=== PATIENT | male | born 1985 | race Caucasian/White ===

== ENCOUNTER 2017-02-14 21:07 | Inpatient (IN) | payer MEDICAID, MEDICARE ==
--- NOTE | 2017-02-14 21:41 | ED PDOC ---
HPI: Psych/Substance Abuse Time Seen by Provider: 02/14/17 21:35 Chief Complaint (Nursing): Psychiatric Evaluation Chief Complaint (Provider): crisis eval History Per: Patient, EMS Additional Complaint(s): 31 year old male presents to ED from assisted for crisis eval. Patient states he is having delusional thoughts and he is hearing voices. He states he feels suicidal and his plan would be to "cut my veins." Patient offers no acute medical complaints upon arrival. Past Medical History Reviewed: Historical Data, Nursing Documentation, Vital Signs Vital Signs: Last Vital Signs Temp 98.2 F 02/14/17 21:14 Pulse 107 H 02/14/17 21:14 Resp 16 02/14/17 21:14 BP 149/89 02/14/17 21:14 Pulse Ox 96 02/14/17 21:14 - Medical History PMH: Asthma, Bipolar Disorder, Depression - Family History Family History: States: No Known Family Hx - Living Arrangements Living Arrangements: Other (lives in assisted) - Social History Current smoker - smoking cessation education provided: No Alcohol: None Drugs: Denies - Allergies Allergies/Adverse Reactions: Allergies Allergy/AdvReac Type Severity Reaction Status Date / Time No Known Allergies Allergy Verified 08/19/14 09:39 Review of Systems ROS Statement: Except As Marked, All Systems Reviewed And Found Negative Psych: Positive for: Psychosis (hearing voices), Suicidal ideation Physical Exam - Reviewed Nursing Documentation Reviewed: Yes Vital Signs Reviewed: Yes - Physical Exam Appears: Positive for: Well, Non-toxic, No Acute Distress Skin: Negative for: Rash Eye Exam: Positive for: Normal appearance, EOMI, PERRL Cardiovascular/Chest: Positive for: Regular Rate, Rhythm Respiratory: Positive for: Normal Breath Sounds Extremity: Positive for: Normal ROM. Negative for: Pedal Edema Neurologic/Psych: Positive for: Alert, Oriented - Laboratory Results Result Diagrams: 02/14/17 22:11 02/14/17 22:11 - ECG Interpretation Of ECG: NSR 83 bpm, no acute finding, reviewed by PA and ED attending O2 Sat by Pulse Oximetry: 96 Pulse Ox Interpretation: Normal - Other Rad Bedside chest X-Ray: Interpreted by Me, Viewed By Me X-Ray Interpretation: no acute finding Medical Decision Making Medical Decision Makin31 year old here for crisis eval Plan: 1:1 observation Crisis eval CBC CMP BAL UDS UA CXR Admit to ED observation ED OBSERVATION Date of observation admission: 02/14/17 Time of observation admission: 23:25 - Observation admission statement Patient is being placed in observation because:: Hearing voices, suicidal thoughts - Goals of Observation Goals of observation are:: Monitor patient while undergoing medical and psychiatric work-up - Progress Note Progress Note: 02/14/17 23:36 As per crisis counselor and psychiatrist carbon furnace operator, Dr. Wolf, patient does not meet criteria for admission to [facility] psych unit and he will require [facility] screen. 02/14/17 23:47 Patient is medically stable for [facility] screen Disposition - Clinical Impression Clinical Impression: Schizoaffective disorder, bipolar type - Patient ED Disposition Is Patient to be Admitted: Transfer of Care - Disposition Disposition: Transfer of Care Disposition Time: 23:48 Condition: FAIR Forms: [employer] (Kazakh) Patient Signed Over To: Yanci Mckenna Handoff Comments: Signed out to CARYN Mckenna pending [facility] screen and final disposition Results - Lab Results Lab Results: 02/14/17 02/14/17 02/14/17 22:11 22:11 22:11 WBC RBC Hgb Hct MCV MCH MCHC RDW Plt Count MPV Neut % (Auto) Lymph % (Auto) Coke % (Auto) Eos % (Auto) Baso % (Auto) Neut # Lymph # Coke # Eos # Baso # Sodium Potassium Chloride Carbon Dioxide Anion Gap BUN Creatinine Est GFR ( Amer) Est GFR (Non-Af Amer) Random Glucose Calcium Total Bilirubin AST ALT Alkaline Phosphatase Total Protein Albumin Globulin Albumin/Globulin Ratio Urine Color Yellow Urine Clarity Slighty-cloudy Urine pH 5.0 Ur Specific [place] 1.024 Urine Protein Negative Urine Glucose (UA) Neg Urine Ketones Trace Urine Blood Negative Urine Nitrate Negative Urine Bilirubin Negative Urine Urobilinogen 2.0 Ur Leukocyte Esterase Neg Urine RBC (Auto) 6 H Urine Microscopic WBC < 1 Urine Bacteria Rare Urine Opiates Screen Negative Urine Methadone Screen Negative Ur Barbiturates Screen Negative Valproic Acid 17.0 L Ur Phencyclidine Scrn Negative Ur Amphetamines Screen Negative U Benzodiazepines Scrn Negative U Oth Cocaine Metabols Negative U Cannabinoids Screen Negative Alcohol, Quantitative 02/14/17 02/14/17 22:11 22:11 WBC 9.4 RBC 4.39 L Hgb 13.5 Hct 38.8 MCV 88.5 MCH 30.7 MCHC 34.7 RDW 14.2 Plt Count 234 MPV 9.4 Neut % (Auto) 46.6 L Lymph % (Auto) 41.2 H Coke % (Auto) 7.9 Eos % (Auto) 3.5 Baso % (Auto) 0.8 Neut # 4.4 Lymph # 3.9 Coke # 0.7 Eos # 0.3 Baso # 0.1 Sodium 140 Potassium 3.9 Chloride 105 Carbon Dioxide 27 Anion Gap 12 BUN 12 Creatinine 0.9 Est GFR ( Amer) > 60 Est GFR (Non-Af Amer) > 60 Random Glucose 122 H Calcium 9.3 Total Bilirubin 0.2 AST 24 ALT 45 Alkaline Phosphatase 55 Total Protein 7.2 Albumin 4.4 Globulin 2.8 Albumin/Globulin Ratio 1.5 Urine Color Urine Clarity Urine pH Ur Specific [place] Urine Protein Urine Glucose (UA) Urine Ketones Urine Blood Urine Nitrate Urine Bilirubin Urine Urobilinogen Ur Leukocyte Esterase Urine RBC (Auto) Urine Microscopic WBC Urine Bacteria Urine Opiates Screen Urine Methadone Screen Ur Barbiturates Screen Valproic Acid Ur Phencyclidine Scrn Ur Amphetamines Screen U Benzodiazepines Scrn U Oth Cocaine Metabols U Cannabinoids Screen Alcohol, Quantitative < 10
[2017-02-14 22:23] LABS: URINE BACTERIA RARE (<OCC); URINE BILIRUBIN NEGATIVE (NEGATIVE); URINE BLOOD NEGATIVE (NEGATIVE); URINE CLARITY SLIGHTY-CLOUDY (Clear); URINE COLOR YELLOW (YELLOW); URINE GLUCOSE (UA) NEG (Normal); URINE LEUKOCYTE ESTERASE NEG Leu/uL (Negative); URINE NITRATE NEGATIVE (NEGATIVE); URINE PROTEIN NEGATIVE (NEGATIVE)
[2017-02-14 22:25] LABS: BASO # 0.1 K/uL (0.0-0.2); BASO % 0.8 % (0.0-2.0); EOS # 0.3 K/uL (0.0-0.7); EOS % 3.5 % (0.0-4.0); HEMOGLOBIN 13.5 g/dL (12.0-18.0); LYMPH # 3.9 K/uL (1.0-4.3); LYMPH % 41.2 % (20.0-40.0); MEAN CELL VOLUME 88.5 fl (80.0-94.0); MEAN CORPUSCULAR HEMOGLOBIN 30.7 pg (27.0-31.0); MEAN CORPUSCULAR HGB CONC 34.7 g/dL (33.0-37.0); MEAN PLATELET VOLUME 9.4 fl (7.2-11.7); MONO # 0.7 K/uL (0.0-0.8); MONO % 7.9 % (0.0-10.0); NEUT # 4.4 K/uL (1.8-7.0); NEUT % 46.6 % (50.0-75.0); NRBC % 0.2 % (0.0-0.0); RBC 4.39 Mil/uL (4.40-5.90); RED CELL DISTRIBUTION WIDTH 14.2 % (11.5-14.5); WHITE BLOOD COUNT 9.4 K/uL (4.8-10.8)
[2017-02-14 22:35] LABS: ALB/GLOB RATIO 1.5 (1.0-2.1); ALBUMIN 4.4 g/dL (3.5-5.0); ALT/SGPT 45 U/L (21-72); AST/SGOT 24 U/L (17-59); BLOOD UREA NITROGEN 12 mg/dl (9-20); CALCIUM 9.3 mg/dL (8.4-10.2); GFR AFRICAN-AMERICAN > 60; GFR NON-AFRICAN AMERICAN > 60
[2017-02-14 22:55] LABS: BARBITURATES, UR NEGATIVE (NEGATIVE); BENZODIAZEPINES, UR NEGATIVE (NEGATIVE); OPIATES, UR NEGATIVE (NEGATIVE); PHENCYCLIDINE, UR NEGATIVE (NEGATIVE)
--- NOTE | 2017-02-15 05:12 | ED PDOC ---
- Laboratory Results Result Diagrams: 02/14/17 22:11 02/14/17 22:11 - ECG O2 Sat by Pulse Oximetry: 96 - Progress ED Course And Treament: Case endorsed to procedure writer from Tatyana GLASS pending [facility] eval 1:30 Patient resting comfortably 3:00 Patient sleeping, no distress 4:30 Patient sleeping, no distress 5:10 Patient now voluntary, will be admitted to [facility] as per Dr. Wolf. Disposition - Clinical Impression Clinical Impression: Schizoaffective disorder, bipolar type - POA Present On Arrival: None - Disposition Disposition: Admitted as In-Patient Disposition Time: 05:12 Condition: STABLE
[2017-02-15] MEDS ORDERED: DiphenhydrAMINE 50 mg/ml Inj IM PRN (05:33)
[2017-02-15 05:35] VITALS: O2SAT 98
[2017-02-15] MEDS ORDERED: Magnesium Hydroxide Susp 30 ml UD PO PRN (05:41)
[2017-02-15] MEDS ORDERED: Alum-Mag Hydrox-Simethicone Susp (30 mL) PO PRN (05:41)
--- NOTE | 2017-02-15 08:00 | CARD ---
APPROVED REPORT EKG Measurement Heart [id number] IN [id number] <Conclusion> Normal sinus rhythm Nonspecific T wave abnormality Abnormal ECG
--- NOTE | 2017-02-15 10:30 | RAD ---
HISTORY: Medical clearance. COMPARISON: 08/19/2014. FINDINGS: LUNGS: No active pulmonary disease. PLEURA: No significant pleural effusion identified, no pneumothorax apparent. CARDIOVASCULAR: Normal. OSSEOUS STRUCTURES: No significant abnormalities. VISUALIZED UPPER ABDOMEN: Normal. OTHER FINDINGS: None. IMPRESSION: No active disease. No significant interval change compared to the prior examination(s).
[2017-02-15] MEDS ORDERED: Ergocalciferol 50,000 Intl Units Cap PO SCH (11:15)
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
--- NOTE | 2017-02-15 14:41 | PCM.BM ---
<ElkhartConstanza villatoro - Last Filed: 02/15/17 14:39> Treatment Plan Problems - Problems identified on initial assessmt Auditory Hallucinations Date Initiated: 02/15/17 Time Initiated: 14:41 Assessment reference: NA Status: Active Priority: 1 Treatment assets and liabiliti Patient Assests: ADL independent, negotiates basic needs Patient Liabilities: poor support system, substance abuse - Milieu Protocol Maintain good personal hygiene: daily Encourage regular showers, every shift Remind patient to perform daily oral care, every shift Assist patient to perform ADL's Conduct patient checks and document Observation sheet: Q15 minutes Maintain personal safety: every shift Educate patient to report safety concerns to staff, every shift Monitor environment for contraband/sharps Medication safety: Monitor for expected outcome, potential side effects: every shift, Assess barriers to learning: every shift, Assess readiness for medication education: every shift Milieu Narrative: admit to 3[facility] for safety and observation gather collateral information provide supportive therapy adjust medications- restart home meds disposition planning- return to [facility] tomorrow if remains stable hospitalist consult Discharge/Continuing Care - Treatment Team Participation Patient/Family/SO Statement: admit to 3[facility] for safety and observation gather collateral information provide supportive therapy adjust medications- restart home meds disposition planning- return to [facility] tomorrow if remains stable hospitalist consult <Favio Ramirez - Last Filed: 02/16/17 12:33> Treatment Plan Problems - Problems identified on initial assessmt Alcohol Use Date Initiated: 02/16/17 (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.) Time Initiated: 12:29 Assessment reference: SW Status: Active Family Contact - Outside Agency Agency 1 Care involvment: Following patient during stay, Information-sharing Agency contact name: BONILLA Rosa/Mary Anne Agency contact number: [phone] Discharge/Continuing Care - Education Needs Education Needs: Family Medication, Family Anger Management skills, Family Community resources, Family Personal Hygiene/Grooming - Discharge Discharge Criteria: Free of agitation, Reduction of target symptoms Discharge to:: Intermediate - Treatment Team Participation Discussed with Family/SO: No Was Patient/Family/SO present at Treatment Team Meeting: Yes
[2017-02-15] MEDS: Divalproex 500 mg DR(BID formulation) PO SCH (17:13)
[2017-02-16] MEDS ORDERED: Levothyroxine 50 MCG TAB PO SCH (09:00)
[2017-02-16] MEDS: Divalproex 500 mg DR(BID formulation) PO SCH (09:25)
[2017-02-16 09:45] LABS: HDL CHOLESTEROL 42 MG/DL (30-70)
[2017-02-16 09:56] LABS: LDL CHOLESTEROL 130 mg/dL (0-129)
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
[2017-02-16 16:04] VITALS: BP 163/95; PULSE 89; RESP 20; TEMP 97.5
== END 2017-02-16 17:32 | disposition home or self-care (01) | DRG 430 ==
LOC: H.ER 21:07 → H.EROBSV 23:23 → H.ERHOLD 02-15 05:10 → OBSVTOIN 02-15 05:10 → H.PSYCH 02-15 05:51
PROVIDERS: ADMIT Psychiatry & Neurology Psychiatry; ATTEND Psychiatry & Neurology Psychiatry
PROC: GZ3ZZZZ Medication Management (ICD-10-PCS; principal; 2017-02-15)
PROC: GZHZZZZ Group Psychotherapy (ICD-10-PCS; 2017-02-15)
PROC: GZ56ZZZ Individual Psychotherapy, Supportive (ICD-10-PCS; 2017-02-15)
DX: F25.0 Schizoaffective disorder, bipolar type (principal); F22 Delusional disorders; R45.851 Suicidal ideations; F10.10 Alcohol abuse, uncomplicated; J45.909 Unspecified asthma, uncomplicated

== ENCOUNTER 2017-04-28 09:22 | Emergency (ER) | payer MEDICAID, MEDICARE ==
[2017-04-28 09:33] VITALS: BMI 38.7
[2017-04-28 10:14] LABS: BASO # 0.1 K/uL (0.0-0.2); BASO % 0.7 % (0.0-2.0); EOS # 0.2 K/uL (0.0-0.7); EOS % 2.5 % (0.0-4.0); HEMATOCRIT 44.8 % (35.0-51.0); LYMPH # 3.4 K/uL (1.0-4.3); LYMPH % 40.9 % (20.0-40.0); MEAN CELL VOLUME 89.6 fl (80.0-94.0); MEAN CORPUSCULAR HEMOGLOBIN 29.7 pg (27.0-31.0); MEAN CORPUSCULAR HGB CONC 33.1 g/dL (33.0-37.0); MEAN PLATELET VOLUME 8.8 fl (7.2-11.7); MONO # 0.9 K/uL (0.0-0.8); MONO % 10.3 % (0.0-10.0); NEUT # 3.8 K/uL (1.8-7.0); NEUT % 45.6 % (50.0-75.0); NRBC % 0.3 % (0.0-0.0); RED CELL DISTRIBUTION WIDTH 13.9 % (11.5-14.5); WHITE BLOOD COUNT 8.4 K/uL (4.8-10.8)
--- NOTE | 2017-04-28 10:20 | ED PDOC ---
HPI: Psych/Substance Abuse Time Seen by Provider: 04/28/17 09:38 Chief Complaint (Nursing): Psychiatric Evaluation Chief Complaint (Provider): psych eval ED Caveat: Intoxicated History/Exam Limitations: clinical condition Onset/Duration Of Symptoms: Unknown Current Symptoms Are (Timing): Still Present Modifying Factor(s): Alcohol, Marijuana Associated Symptoms: Agitation (mild) Involuntary Hold By: Emergency Physician Additional Complaint(s): 31yo male per EMS resident [facility] who eloped 3 days ago, "drank alcohol and smoked marijuana", returned to [facility] this morning and sent to ED for evaluation. Patient is uncooperative with questioning. Denies trauma, pain, or injury. Past Medical History Reviewed: Historical Data, Nursing Documentation, Vital Signs Vital Signs: Last Vital Signs Temp 97.8 F 04/28/17 09:33 Pulse 92 H 04/28/17 09:33 Resp 17 04/28/17 09:33 BP 149/94 H 04/28/17 09:33 Pulse Ox 98 04/28/17 09:33 - Medical History PMH: Asthma, Bipolar Disorder, Depression, Diabetes, HTN, Hyperthyroidism, Schizophrenia Denies: Hepatitis, HIV, Seizures, Sexually Transmitted Disease - Family History Family History: States: Unknown Family Hx - Living Arrangements Living Arrangements: Other ([facility]) - Social History Alcohol: Occasional Drugs: Cannabis - Immunization History Hx Tetanus Toxoid Vaccination: No Hx Influenza Vaccination: No Hx Pneumococcal Vaccination: No - Home Medications Home Medications: Ambulatory Orders Medication Instructions Recorded Divalproex [Depakote ER(ONCE 500 mg PO BID #60 02/16/17 DAILY)] Ergocalciferol (Vitamin D2) 1 cap PO QWK #4 02/16/17 [Vitamin D2] Levothyroxine [Synthroid] 50 mcg PO DAILY #30 02/16/17 [place] Carbonate [[place] 300 mg PO BID #60 cap 02/16/17 Carbonate 300MG] metFORMIN [glucOPHAGE] 500 mg PO BID #60 02/16/17 Benzonatate [Tessalon Perles] 100 mg PO TID #20 sgl 04/19/17 Fluticasone Propionate [Flonase] 1 actuation NS BID #1 bottle 04/19/17 - Allergies Allergies/Adverse Reactions: Allergies Allergy/AdvReac Type Severity Reaction Status Date / Time No Known Allergies Allergy Verified 10/19/17 09:39 Review of Systems Review Of Systems: ROS cannot be obtained secondary to pt's inabilty to answer questions. Physical Exam - Reviewed Nursing Documentation Reviewed: Yes Vital Signs Reviewed: Yes - Physical Exam Appears: Positive for: Non-toxic, No Acute Distress Head Exam: Positive for: ATRAUMATIC, NORMAL INSPECTION, NORMOCEPHALIC Skin: Positive for: Normal Color, Warm. Negative for: Diaphoresis Eye Exam: Positive for: EOMI, Normal appearance, PERRL ENT: Positive for: Normal ENT Inspection Neck: Positive for: Normal, Painless ROM Cardiovascular/Chest: Positive for: Regular Rate, Rhythm Respiratory: Positive for: CNT, Normal Breath Sounds Gastrointestinal/Abdominal: Positive for: Bowel Sounds, Soft. Negative for: Tenderness Back: Positive for: Normal Inspection Extremity: Positive for: Normal ROM Neurologic/Psych: Positive for: Alert, Mood/Affect (poor insight, speech limited /uncooperative). Negative for: Motor/Sensory Deficits - Laboratory Results Result Diagrams: 04/28/17 10:07 04/28/17 10:07 - ECG O2 Sat by Pulse Oximetry: 98 Medical Decision Making Medical Decision Making: placed 1:1 obs Labs, Utox ordered labs reviewed, clinically unremarkable crisis saw patient, discussed w [facility] who states will take him back. transportation to be arranged. Disposition - Clinical Impression Clinical Impression: Schizoaffective disorder - Patient ED Disposition Is Patient to be Admitted: No Counseled Patient/Family Regarding: Studies Performed, Diagnosis, Need For Followup - Disposition Referrals: [facility] [Outside] Disposition: Routine/Home Disposition Time: 15:15 Condition: STABLE Instructions: Schizoaffective Disorder (ED) Forms: [id number] (Spanish)
[2017-04-28 10:24] LABS: ALB/GLOB RATIO 1.4 (1.0-2.1); ALCOHOL SERUM < 10 mg/dl (0-10); ALKALINE PHOSPHATASE 69 U/L (38-126); ALT/SGPT 61 U/L (21-72); AST/SGOT 35 U/L (17-59); BILIRUBIN,TOTAL 0.2 mg/dl (0.2-1.3); BLOOD UREA NITROGEN 11 mg/dl (9-20); CALCIUM 9.1 mg/dL (8.4-10.2); CARBON DIOXIDE 24 mmol/L (22-30); CHLORIDE 106 mmol/L (98-107); GFR AFRICAN-AMERICAN > 60; GLUCOSE,RANDOM 97 mg/dL (75-110); POTASSIUM 3.9 MMOL/L (3.6-5.0); SODIUM 142 mmol/l (132-148); TOTAL PROTEIN 7.6 G/DL (6.3-8.2)
[2017-04-28 11:06] LABS: RBC URINE < 1 /hpf (0-3); URINE BACTERIA RARE (<OCC); URINE BILIRUBIN NEGATIVE (NEGATIVE); URINE BLOOD NEGATIVE (NEGATIVE); URINE COLOR YELLOW (YELLOW); URINE GLUCOSE (UA) NEG (Normal); URINE KETONE TRACE mg/dL (NEGATIVE); URINE LEUKOCYTE ESTERASE NEG Leu/uL (Negative); URINE PROTEIN NEGATIVE (NEGATIVE); URINE UROBILINOGEN 0.2-1.0 mg/dL (0.2-1.0); WBC URINE 1 /hpf (0-5)
[2017-04-28 14:58] VITALS: BP 124/78; PULSE 88; RESP 196; TEMP 97.5
[2017-04-28 17:27] VITALS: O2SAT 98
== END 2017-04-28 18:30 | disposition home or self-care (01) ==
LOC: H.ER 09:22
DX: F20.9 Schizophrenia, unspecified (principal)

== ENCOUNTER 2017-10-02 22:15 | Emergency (ER) | payer MEDICAID, MEDICARE ==
[2017-10-02 22:15] VITALS: BMI 37.4
[2017-10-02 22:23] VITALS: BP 142/92; PULSE 74; RESP 18; TEMP 98.6; O2SAT 99
--- NOTE | 2017-10-02 23:59 | ED PDOC ---
HPI: Psych/Substance Abuse Time Seen by Provider: 10/02/17 22:33 Chief Complaint (Nursing): Psychiatric Evaluation Chief Complaint (Provider): Psychiatric Evaluation History Per: Patient History/Exam Limitations: no limitations Suicide/Self Injury Attempted (Context): None Modifying Factor(s): None Additional Complaint(s): 32 year old male presents to ED with complaints of paranoia x2 days and has a past medical history of schizophrenia and bipolar disorder. (-) audio/visual hallucination, suicidal ideation, or homicidal ideation. Patient denies alcohol or drug use and notes that he is hungry. PCP: Dr. Potts Past Medical History Reviewed: Historical Data, Nursing Documentation, Vital Signs Vital Signs: Last Vital Signs Temp 98.6 F 10/02/17 22:20 Pulse 74 10/02/17 22:20 Resp 18 10/02/17 22:20 BP 142/92 H 10/02/17 22:20 Pulse Ox 99 10/02/17 22:20 - Medical History PMH: Asthma, Bipolar Disorder, Depression, Diabetes, Hyperthyroidism, Schizophrenia Denies: Hepatitis, HIV, HTN, Seizures, Sexually Transmitted Disease - Family History Family History: States: No Known Family Hx - Social History Current smoker - smoking cessation education provided: No Ex-Smoker (has not smoked in the last 12 months): No Alcohol: None Drugs: Denies - Immunization History Hx Tetanus Toxoid Vaccination: No Hx Influenza Vaccination: No Hx Pneumococcal Vaccination: No - Home Medications Home Medications: Ambulatory Orders Medication Instructions Recorded Divalproex [Depakote ER(ONCE 500 mg PO BID #60 02/16/17 DAILY)] Ergocalciferol (Vitamin D2) 1 cap PO QWK #4 02/16/17 [Vitamin D2] Levothyroxine [Synthroid] 50 mcg PO DAILY #30 02/16/17 metFORMIN [glucOPHAGE] 500 mg PO BID #60 02/16/17 Haloperidol [Haldol] 10 mg PO BID 08/26/17 Propranolol HCl 10 mg PO BID 08/26/17 ARIPiprazole [Abilify] 5 mg PO HS 09/29/17 MetFORMIN [glucoPHAGE] 500 mg PO BID #60 tab 09/29/17 traZODone [trazODONE HYDROCHLORIDE] 50 mg PO HS PRN 09/29/17 - Allergies Allergies/Adverse Reactions: Allergies Allergy/AdvReac Type Severity Reaction Status Date / Time No Known Allergies Allergy Verified 10/02/17 22:19 Review of Systems ROS Statement: Except As Marked, All Systems Reviewed And Found Negative Psych: Negative for: Psychosis ((-) audio/visual hallucinations), Suicidal ideation, Other ((-) homicidal ideation) Physical Exam - Reviewed Nursing Documentation Reviewed: Yes Vital Signs Reviewed: Yes - Physical Exam Appears: Positive for: Well, No Acute Distress Head Exam: Positive for: ATRAUMATIC, NORMOCEPHALIC Skin: Positive for: Warm, Dry Eye Exam: Positive for: EOMI, PERRL ENT: Negative for: Pharyngeal Erythema, Tonsillar Exudate Neck: Positive for: Painless ROM, Supple Cardiovascular/Chest: Positive for: Regular Rate, Rhythm. Negative for: Murmur Respiratory: Positive for: Normal Breath Sounds. Negative for: Respiratory Distress Gastrointestinal/Abdominal: Positive for: Soft. Negative for: Tenderness Back: Positive for: Normal Inspection. Negative for: Decreased ROM Extremity: Positive for: Normal ROM. Negative for: Deformity Lymphatic: Negative for: Adenopathy Neurologic/Psych: Positive for: Alert, Oriented (x3), Mood/Affect (mood: anxious , affect: flat). Negative for: Motor/Sensory Deficits - ECG O2 Sat by Pulse Oximetry: 99 (RA) Pulse Ox Interpretation: Normal Medical Decision Making Medical Decision Makin Initial impression: paranoia Initial plan: * UDrug screen * Crisis * UDip Previous chart demonstrates visit 3 days ago to [facility] for a similar complaint and was discharged. Scribe Attestation: Documented by Liliam Mcdonald acting as a scribe for Marivel Keen MD. Scribe Attestation: All medical record entries made by the Scribe were at my direction and personally dictated by me. I have reviewed the chart and agree that the record accurately reflects my personal performance of the history, physical exam, medical decision making, and the department course for this patient. I have also personally directed, reviewed, and agree with the discharge instructions and disposition. Disposition - Clinical Impression Clinical Impression: Schizoaffective disorder - Disposition Disposition: Transfer of Care Disposition Time: 00:00 Condition: STABLE Patient Signed Over To: Arsen Junior Handoff Comments: Pending crisis eval, reassessment and final ER disposition
--- NOTE | 2017-10-03 00:19 | ED PDOC ---
- ECG O2 Sat by Pulse Oximetry: 99 (RA) Medical Decision Making Medical Decision Makin Patient signed out to this provider from Marivel Keen MD pending crisis evaluation and re-eval. 0325 Patient has been evaluated by crisis and deemed stable for discharge home as per Carlo Henriquez, NPR Dx: schizoaffective disorder Scribe Attestation: Documented by Liliam Mcdonald acting as a scribe for Arsen Junior MD. Scribe Attestation: All medical record entries made by the Scribe were at my direction and personally dictated by me. I have reviewed the chart and agree that the record accurately reflects my personal performance of the history, physical exam, medical decision making, and the department course for this patient. I have also personally directed, reviewed, and agree with the discharge instructions and disposition. Disposition - Clinical Impression Clinical Impression: Schizoaffective disorder - POA Present On Arrival: None - Disposition Referrals: Danica Johnson MD [Primary Care Provider] - Disposition: Routine/Home Disposition Time: 03:25 Condition: STABLE Instructions: Schizoaffective Disorder Forms: [facility] (Vietnamese)
== END 2017-10-03 04:10 | disposition home or self-care (01) ==
LOC: H.ER 22:15
DX: F25.9 Schizoaffective disorder, unspecified (principal); R73.09 Other abnormal glucose; E05.90 Thyrotoxicosis, unspecified without thyrotoxic crisis or storm; E11.9 Type 2 diabetes mellitus without complications; F31.9 Bipolar disorder, unspecified; J45.909 Unspecified asthma, uncomplicated; Z79.84 Long term (current) use of oral hypoglycemic drugs

== ENCOUNTER 2017-12-28 21:46 | Emergency (ER) | payer MEDICAID, MEDICARE ==
[2017-12-28 21:46] VITALS: BMI 37.4
--- NOTE | 2017-12-28 23:32 | ED PDOC ---
HPI: Headache Time Seen by Provider: 12/28/17 23:01 Chief Complaint (Nursing): Headache Chief Complaint (Provider): Headache History Per: Patient History/Exam Limitations: no limitations Onset/Duration Of Symptoms: Days (x3) Current Symptoms Are (Timing): Still Present Preceeding Symptoms: denies: Visual Disturbances Associated Symptoms: denies: Blurred Vision, Nausea, Vomiting, Extremity Weakness Additional Complaint(s): Mohan Lorenzo is a 32 year old male with a past medical history of hypertension and diabetes who is presenting to the ED for evaluation of bilateral temporal headaches, onset 3 days ago. Patient states that pain has been slowly worsening since onset and is worsened when he turns his head left or right which is associated with facial tightness to the side he turns. He also reports an ongoing cough for three weeks which is accompanied by nasal congestion, rhinorrhea, and the feeling that both his ears are "clogged." Patient denies any numbness, weakness, nausea, vomiting, or blurry vision. PMD: Dr. Johnson Past Medical History Reviewed: Historical Data, Nursing Documentation, Vital Signs Vital Signs: Last Vital Signs Temp 98.2 F 12/28/17 22:21 Pulse 85 12/28/17 22:21 Resp 18 12/28/17 22:21 BP 131/85 12/28/17 22:21 Pulse Ox 99 12/28/17 22:21 - Medical History PMH: Asthma, Bipolar Disorder, Depression, Diabetes, Hyperthyroidism, Schizophrenia Denies: HIV, HTN, Seizures, Sexually Transmitted Disease - Surgical History Surgical History: No Surg Hx - Family History Family History: States: Hypertension - Social History Current smoker - smoking cessation education provided: Yes Alcohol: Occasional Drugs: Denies - Immunization History Hx Tetanus Toxoid Vaccination: No Hx Influenza Vaccination: No Hx Pneumococcal Vaccination: No - Home Medications Home Medications: Ambulatory Orders Medication Instructions Recorded Divalproex [Depakote ER(ONCE 500 mg PO BID #60 02/16/17 DAILY)] Ergocalciferol (Vitamin D2) 1 cap PO QWK #4 02/16/17 [Vitamin D2] Levothyroxine [Synthroid] 50 mcg PO DAILY #30 02/16/17 metFORMIN [glucOPHAGE] 500 mg PO BID #60 02/16/17 Haloperidol [Haldol] 10 mg PO BID 08/26/17 Propranolol HCl 10 mg PO BID 08/26/17 ARIPiprazole [Abilify] 5 mg PO HS 09/29/17 traZODone [trazODONE HYDROCHLORIDE] 50 mg PO HS PRN 09/29/17 Benztropine [Benztropine Mesylate] 1 mg PO BID 10/23/17 Acetaminophen [Tylenol Extra 1,000 mg PO Q6 PRN #100 tablet 12/28/17 Strength] Azithromycin [Zithromax] 250 mg PO DAILY #6 dose 12/28/17 - Allergies Allergies/Adverse Reactions: Allergies Allergy/AdvReac Type Severity Reaction Status Date / Time No Known Allergies Allergy Verified 12/28/17 22:21 Review of Systems ROS Statement: Except As Marked, All Systems Reviewed And Found Negative Eyes: Negative for: Vision Change ENT: Positive for: Nose Discharge, Nose Congestion Respiratory: Positive for: Cough Gastrointestinal: Negative for: Nausea, Vomiting Neurological: Positive for: Headache. Negative for: Weakness, Numbness Physical Exam - Reviewed Nursing Documentation Reviewed: Yes Vital Signs Reviewed: Yes - Physical Exam Appears: Positive for: Well (Appearing), Non-toxic, No Acute Distress Head Exam: Positive for: ATRAUMATIC, NORMOCEPHALIC Skin: Positive for: Warm, Dry Eye Exam: Positive for: EOMI, PERRL ENT: Positive for: Pharynx Is (clear), TM Is/Are (normal) Neck: Positive for: Painless ROM, Supple Cardiovascular/Chest: Positive for: Regular Rate, Rhythm, Chest Non Tender. Negative for: Murmur Respiratory: Positive for: Normal Breath Sounds. Negative for: Accessory Muscle Use, Rales, Rhonchi, Wheezing, Respiratory Distress Gastrointestinal/Abdominal: Positive for: Soft. Negative for: Tenderness Back: Positive for: Normal Inspection. Negative for: Decreased ROM Extremity: Positive for: Normal ROM. Negative for: Deformity Lymphatic: Negative for: Adenopathy Neurologic/Psych: Positive for: Alert, home health attendant II-XII (intact), Oriented (x3), Mood/ Affect (normal), Cerebellar Tests (normal FTN), Gait (steady). Negative for: Motor/Sensory Deficits, Aphasia, Facial Droop - ECG O2 Sat by Pulse Oximetry: 99 (RA) Pulse Ox Interpretation: Normal Medical Decision Making Medical Decision Making: Time: 23:09 Impression: Headache and Upper Resppiratory Infection Plan: --Chest X-Ray --Antivert 50 mg PO --Tylenol 975 mg PO CXR unremarkable Pt stable for dc. Scribe Attestation: Documented by, Bobbi aBlderas acting as a scribe for Marivel Keen MD. Provider Scribe Attestation: All medical record entries made by the Scribe were at my direction and personally dictated by me. I have reviewed the chart and agree that the record accurately reflects my personal performance of the history, physical exam, medical decision making, and the department course for this patient. I have also personally directed, reviewed, and agree with the discharge instructions and disposition. Disposition - Clinical Impression Clinical Impression: Headache, Bronchitis Counseled Patient/Family Regarding: Studies Performed, Diagnosis, Need For Followup, Rx Given - Disposition Referrals: Danica Johnson MD [Staff Provider] - (SEE DR JOHNSON IN 1-2 DAYS FOR REEVALUATION ) Disposition: Routine/Home Disposition Time: 00:30 Condition: IMPROVED Prescriptions: Acetaminophen [Tylenol Extra Strength] 1,000 mg PO Q6 PRN #100 tablet PRN Reason: Headache Azithromycin [Zithromax] 250 mg PO DAILY #6 dose Instructions: Headache, Adult, Acute Bronchitis, Adult (DC) Forms: [facility] (Lao)
[2017-12-29 05:57] VITALS: BP 128/82; PULSE 78; RESP 16; TEMP 97.9
--- NOTE | 2017-12-29 09:36 | RAD ---
HISTORY: cough COMPARISON: No prior. TECHNIQUE: Chest PA and lateral FINDINGS: LUNGS: No active pulmonary disease. PLEURA: No significant pleural effusion identified. No pneumothorax apparent. CARDIOVASCULAR: Mild cardiomegaly-similar OSSEOUS STRUCTURES: No significant abnormalities. VISUALIZED UPPER ABDOMEN: Normal. OTHER FINDINGS: None. IMPRESSION: No active disease. No interval change
[2017-12-30 16:13] VITALS: O2SAT 99
== END 2017-12-29 00:10 | disposition home or self-care (01) ==
LOC: H.ER 21:46
DX: R51 Headache (principal); J40 Bronchitis, not specified as acute or chronic; E05.90 Thyrotoxicosis, unspecified without thyrotoxic crisis or storm; E11.9 Type 2 diabetes mellitus without complications; F20.9 Schizophrenia, unspecified; F31.9 Bipolar disorder, unspecified; J45.909 Unspecified asthma, uncomplicated; Z79.84 Long term (current) use of oral hypoglycemic drugs

== ENCOUNTER 2018-03-08 10:55 | Emergency (ER) | payer MEDICAID ==
[2018-03-08 10:58] VITALS: BMI 30.7
[2018-03-08] MEDS ORDERED: Sodium Chloride 0.9% 1,000 ML IV STA (11:14)
[2018-03-08 13:20] LABS: BASO # 0.1 K/uL (0.0-0.2); BASO % 0.8 % (0.0-2.0); EOS # 0.2 K/uL (0.0-0.7); EOS % 2.6 % (0.0-4.0); HEMOGLOBIN 13.9 g/dL (12.0-18.0); LYMPH # 3.6 K/uL (1.0-4.3); LYMPH % 42.3 % (20.0-40.0); MEAN CELL VOLUME 91.7 fl (80.0-94.0); MEAN CORPUSCULAR HEMOGLOBIN 30.7 pg (27.0-31.0); MEAN CORPUSCULAR HGB CONC 33.4 g/dL (33.0-37.0); MONO # 0.7 K/uL (0.0-0.8); MONO % 8.5 % (0.0-10.0); NEUT # 3.9 K/uL (1.8-7.0); NEUT % 45.8 % (50.0-75.0); NRBC % 0.1 % (0.0-0.0); RBC 4.55 Mil/uL (4.40-5.90); RED CELL DISTRIBUTION WIDTH 13.8 % (11.5-14.5); WHITE BLOOD COUNT 8.5 K/uL (4.8-10.8)
[2018-03-08 13:26] LABS: ALB/GLOB RATIO 1.4 (1.0-2.1); ALBUMIN 4.1 g/dL (3.5-5.0); ALT/SGPT 56 U/L (21-72); AST/SGOT 24 U/L (17-59); BLOOD UREA NITROGEN 8 mg/dl (9-20); CALCIUM 9.4 mg/dL (8.4-10.2); GFR NON-AFRICAN AMERICAN > 60
--- NOTE | 2018-03-08 14:27 | ED PDOC ---
HPI: Abdomen Time Seen by Provider: 03/08/18 11:07 Chief Complaint (Nursing): Abdominal Pain Chief Complaint (Provider): Abdominal pain History Per: Patient History/Exam Limitations: no limitations Outside of [place] travel?: No Current Symptoms Are (Timing): Still Present Context: Food Location Of Pain/Discomfort: Diffuse Quality Of Discomfort: "Pain" Associated Symptoms: Vomiting, Diarrhea Additional History Per: Patient Additional Complaint(s): 32yo male, comes to ER complaining of GI distress after he ate some mexican food. Patient reports several episodes of vomiting, loose stools and a crampy abdominal pain which resolved after the vomiting. Otherwise, he denies any fever , chills, or chest pain. Patient also denies any drug or alcohol abuse. Past Medical History Reviewed: Historical Data, Nursing Documentation, Vital Signs Vital Signs: Last Vital Signs Temp 98 F 03/08/18 14:38 Pulse 71 03/08/18 14:38 Resp 18 03/08/18 14:38 BP 122/64 03/08/18 14:38 Pulse Ox 99 03/08/18 14:38 - Medical History PMH: Asthma, Bipolar Disorder, Depression, Diabetes, Hyperthyroidism, Schizophrenia Denies: HIV, HTN, Seizures, Sexually Transmitted Disease - Surgical History Surgical History: No Surg Hx - Family History Family History: States: Hypertension - Social History Current smoker - smoking cessation education provided: No Alcohol: None Drugs: Denies - Immunization History Hx Tetanus Toxoid Vaccination: No Hx Influenza Vaccination: No Hx Pneumococcal Vaccination: No - Home Medications Home Medications: Ambulatory Orders Medication Instructions Recorded Divalproex [Depakote ER(ONCE 500 mg PO BID #60 02/16/17 DAILY)] Ergocalciferol (Vitamin D2) 1 cap PO QWK #4 02/16/17 [Vitamin D2] Levothyroxine [Synthroid] 50 mcg PO DAILY #30 02/16/17 metFORMIN [glucOPHAGE] 500 mg PO BID #60 02/16/17 Haloperidol [Haldol] 10 mg PO BID 08/26/17 Propranolol HCl 10 mg PO BID 08/26/17 ARIPiprazole [Abilify] 5 mg PO HS 09/29/17 traZODone [trazODONE HYDROCHLORIDE] 50 mg PO HS PRN 09/29/17 Benztropine [Benztropine Mesylate] 1 mg PO BID 10/23/17 Acetaminophen [Tylenol Extra 1,000 mg PO Q6 PRN #100 tablet 12/28/17 Strength] Azithromycin [Zithromax] 250 mg PO DAILY #6 dose 12/28/17 Ondansetron ODT [Zofran ODT] 4 mg PO Q6 PRN #10 odt 03/08/18 - Allergies Allergies/Adverse Reactions: Allergies Allergy/AdvReac Type Severity Reaction Status Date / Time No Known Allergies Allergy Verified 12/28/17 22:21 Review of Systems ROS Statement: Except As Marked, All Systems Reviewed And Found Negative Constitutional: Negative for: Fever Cardiovascular: Negative for: Chest Pain Respiratory: Negative for: Shortness of Breath Gastrointestinal: Positive for: Vomiting, Abdominal Pain, Diarrhea Neurological: Negative for: Weakness Physical Exam - Reviewed Nursing Documentation Reviewed: Yes Vital Signs Reviewed: Yes - Physical Exam Appears: Positive for: Non-toxic Head Exam: Positive for: ATRAUMATIC, NORMAL INSPECTION, NORMOCEPHALIC Skin: Positive for: Normal Color Eye Exam: Positive for: Normal appearance Neck: Positive for: Normal, Supple Cardiovascular/Chest: Positive for: Regular Rate, Rhythm Respiratory: Positive for: Normal Breath Sounds Gastrointestinal/Abdominal: Positive for: Normal Exam, Soft. Negative for: Tenderness, Guarding, Rebound Back: Positive for: Normal Inspection Extremity: Positive for: Normal ROM. Negative for: Pedal Edema Neurologic/Psych: Positive for: Alert, Oriented, Mood/Affect (poor insight) - Laboratory Results Result Diagrams: 03/08/18 13:00 03/08/18 13:00 - ECG O2 Sat by Pulse Oximetry: 98 (RA) Pulse Ox Interpretation: Normal Medical Decision Making Medical Decision Making: Impression: Abdominal pain Plan: -- Labs -- IV Fluids 1415 Labs reviewed and are within normal limits. Patient noted to eat lunch with no difficulty. Stable for discharge home. Scribe Attestation: Documented by Deana Núñez acting as a scribe for Elia Ross DO. Provider Attestation: All medical record entries made by the Scribe were at my direction and personally dictated by me. I have reviewed the chart and agree that the record accurately reflects my personal performance of the history, physical exam, medical decision making, and the department course for this patient. I have also personally directed, reviewed, and agree with the discharge instructions and disposition. Disposition - Clinical Impression Clinical Impression: Abdominal discomfort, Vomiting - Patient ED Disposition Is Patient to be Admitted: No Counseled Patient/Family Regarding: Studies Performed, Diagnosis, Need For Followup - Disposition Referrals: [facility] [Outside] Disposition: Routine/Home Disposition Time: 13:01 Condition: STABLE Additional Instructions: Drink plenty of fluids, avoid dairy for 5-6 days. Return to ER for any worse or new symptoms or pain. Prescriptions: Ondansetron ODT [Zofran ODT] 4 mg PO Q6 PRN #10 odt PRN Reason: Nausea/Vomiting Instructions: Nausea and Vomiting, Adult Forms: [facility] (Armenian)
[2018-03-08 14:38] VITALS: BP 122/64; PULSE 71; RESP 18; TEMP 98
--- NOTE | 2018-03-08 22:47 | CARD ---
APPROVED REPORT Date of service: 03/08/2018 EKG Measurement Heart [id number] <Conclusion> Normal sinus rhythm Normal ECG
[2018-03-10 15:54] VITALS: O2SAT 98
== END 2018-03-08 14:40 | disposition home or self-care (01) ==
LOC: H.ER 10:55
DX: R10.9 Unspecified abdominal pain (principal); R11.10 Vomiting, unspecified; E11.9 Type 2 diabetes mellitus without complications; Z86.59 Personal history of other mental and behavioral disorders; J45.909 Unspecified asthma, uncomplicated; Z79.84 Long term (current) use of oral hypoglycemic drugs; E05.90 Thyrotoxicosis, unspecified without thyrotoxic crisis or storm
CPT/HCPCS: 80053; 80320; 84484; 85025; 93005; 96360; 99283; J2405; J7030